=== PATIENT | male | born 1935 | race Caucasian/White ===

== ENCOUNTER → 2016-10-27 | Day surgery (SDC) | payer MEDICARE, OTHER ==
[~2016-10-27] VITALS: Ht 168.9 cm; Wt 67.0 kg
[~2016-10-27] MED LIST: ASPI81CH CHEW; CARV12.52 PO; CHLORHEXIDINE GLUCONATE 2 % 1 PACK (2 CLOTHS) TOPICAL PRN; DEXI60CA2 PO; DO NOT ADM ANY ANTICOAGULANT DRUGS PRN; HEPARIN SODIUM - SQ 10,000 UNITS/ML VIAL ONE; INSULIN HUMAN REGULAR 1,000 UNITS/10 ML VIAL SQ PRN; IOHEXOL 300 MG/ML 100 ML BTL (for Rad CT) IV ONE; IOHEXOL 300 MG/ML 50 ML BTL (for RAD DIAG) IV ONE; LACTATED RINGER'S 1000 ML IV PRN; METOPROLOL TARTRATE 25 MG TAB PO PRN; ONDANSETRON HCL 4 MG/2 ML VIAL IV PUSH ONE; POLY17PO3; POVIDONE IODINE 5% (ANTISEPSIS KIT) 4 APPLICATIONS EACH NARE PRN; PROPOFOL 200 MG/20 ML AMP IV ONE; SODIUM CHLORID 0.9% 500 ML IV PRN; TEMA30CA PO; VALS1TAB65 PO; ePHEDrine/NS 25 MG/5 ML SYR IV ONE
[2016-10-27 12:26] VITALS: BP 195/95; PULSE 70; RESP 16; TEMP 98.9; O2SAT 97
[2016-10-27 12:34] LABS: BASOPHIL # 0.1 TH/MM3 (0-0.2); BASOPHIL % 0.6 % (0.0-2.0); EOSINOPHIL # 0.3 TH/MM3 (0-0.4); EOSINOPHIL % 3.4 % (0.0-4.0); HEMATOCRIT 37.3 % (39.0-51.0); HEMO FLAGS DIFF FINAL; LYMPH % 21.4 % (9.0-44.0); MEAN CELL VOLUME 90.9 FL (80.0-100.0); MEAN CORPUSCULAR HEMOGLOBIN 30.4 PG (27.0-34.0); MEAN CORPUSCULAR HGB CONC 33.5 % (32.0-36.0); MONO % 11.4 % (0.0-8.0); NEUT % 63.2 % (16.0-70.0); PLATELET COUNT 254 TH/MM3 (150-450); RED BLOOD COUNT 4.11 MIL/MM3 (4.50-5.90); RED CELL DISTRIBUTION WIDTH 12.7 % (11.6-17.2); WHITE BLOOD COUNT 9.5 TH/MM3 (4.0-11.0)
[2016-10-27 12:42] LABS: PROTHROMBIN TIME - PATIENT 10.5 SEC (9.8-11.6)
[2016-10-27 12:52] LABS: BICARBONATE 27.7 MEQ/L (21.0-32.0)
--- NOTE | 2016-10-27 13:35 | EKG ---
Date Performed: 10/27/2016 Time Performed: 12:44:09 PTAGE: 81 years EKG: Sinus rhythm NORMAL ECG NO PREVIOUS TRACING DOCTOR: Zion Yang Interpretating Date/Time 10/27/2016 13:34:29
--- NOTE | 2016-10-27 14:13 | PD.VS.PN ---
Pre-operative Note Pre-operative diagnosis: abdominal pain, possible mesenteric ischemia Planned procedure: Mesenteric angiogram, possible PATIENT TRANSITION SPECIALIST/stent Interval History: Pt feeling well and no change in history; specifically, no F/C or chest pain Labs: Laboratory Results Test 10/27/16 12:20 White Blood Count 9.5 TH/MM3 (4.0-11.0) Red Blood Count 4.11 MIL/MM3 (4.50-5.90) Hemoglobin 12.5 GM/DL (13.0-17.0) Hematocrit 37.3 % (39.0-51.0) Mean Corpuscular Volume 90.9 FL (80.0-100.0) Mean Corpuscular Hemoglobin 30.4 PG (27.0-34.0) Mean Corpuscular Hemoglobin 33.5 % Concent (32.0-36.0) Red Cell Distribution Width 12.7 % (11.6-17.2) Platelet Count 254 TH/MM3 (150-450) Mean Platelet Volume 8.4 FL (7.0-11.0) Prothromb Time International 1.0 RATIO Ratio Sodium Level 140 MEQ/L (136-145) Potassium Level 4.0 MEQ/L (3.5-5.1) Chloride Level 106 MEQ/L (98-107) Carbon Dioxide Level 27.7 MEQ/L (21.0-32.0) Anion Gap 6 MEQ/L (5-15) Blood Urea Nitrogen 19 MG/DL (7-18) Random Glucose 107 MG/DL (74-106) Calcium Level 8.9 MG/DL (8.5-10.1) Blood: none needed Imaging: will make in OR Orders: NPO Ancef 1g IV OCTOR Post-operative destination: PACU Operative site marked: No Consent: Informed consent has been obtained from Sandeep Levine. I have explained the procedure in detail and discussed the risks, benefits, and potential complications. All questions have been answered. Joshua Redding MD Oct 27, 2016 14:12
--- NOTE | 2016-10-27 15:13 | HHI.PR ---
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
[2016-10-27 18:11] VITALS: BP 163/86; PULSE 58; RESP 18; TEMP 98.2; O2SAT 94
--- NOTE | 2016-10-28 11:32 | MP ---
cc: JOSHUA REDDING MD DATE OF SURGERY: 10/27/2016 PREOPERATIVE DIAGNOSIS Abdominal pain, potential distal artery occlusive disease. POSTOPERATIVE DIAGNOSIS Abdominal pain of other etiology. PROCEDURE Aortogram. ATTENDING SURGEON Joshua Redding ANESTHESIA General. INDICATIONS Mr. Levine is an 81-year-old gentleman with abdominal pain. 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 He was taken to the operating room for angiographic evaluation and potential treatment. 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 DESCRIPTION OF PROCEDURE Informed consent was obtained from the patient. He was taken to the operating room and placed supine on the operating table. An appropriate timeout was taken to ensure the patient's identity, operative site and planned procedure. It should be noted there was no prior cath based imaging available for my review. Everyone in the room agreed with the timeout and we proceeded. His bilateral groins were prepped and draped and a 21-gauge micropuncture needle was used to access the right common femoral artery. This was exchanged using Seldinger technique for a micropuncture sheath through which a 0.035 Glidewire was introduced and micropuncture sheath was exchanged for a 4-Polish sheath and a VCF catheter was placed over the wire into the sheath. An aortogram in both AP and lateral projections was obtained. The wire, catheter and sheath were removed and pressure was held for hemostasis. There were no complications. I was present for the entire procedure. INTERPRETATION OF IMAGES The patient has a patent infrarenal aorta with a small infrarenal abdominal aortic aneurysm. The patient has a patent SMA and celiac artery. The SMA has approximately 20-30% stenosis right at the genu but this is not felt to be hemodynamically significant. Joshua Redding MD RJF/BT /4:46 PM /11:28 AM
== END | disposition home or self-care (01) ==
LOC: HSDC 11:37
PROVIDERS: ATTEND Surgery
DX: I71.4 Abdominal aortic aneurysm, without rupture (principal); I10 Essential (primary) hypertension; K21.9 Gastro-esophageal reflux disease without esophagitis; Z85.46 Personal history of malignant neoplasm of prostate
CPT/HCPCS: 36200; 75625; 80048; 85025; 85610; 93005; C1769; J1644; J2405; J3010; J7120; Q9967